=== PATIENT | female | born 1955 | race Caucasian/White ===

== ENCOUNTER 2017-12-04 20:57 | Emergency (ER) | payer MEDICARE, OTHER ==
[~2017-12-04] VITALS: Ht 165.1 cm; Wt 63.5 kg
[2017-12-04] MEDS ORDERED: LORazepam 2MG/ML-1ML VIAL ONE (22:34)
[2017-12-04] MEDS ORDERED: LORazepam 2MG/ML-1ML VIAL IV ONE (22:45)
[2017-12-04 23:12] LABS: Basophils # (auto) 0 uL; Basophils % (auto) 0.5 % (0.0-2.0); Eosinophils # (auto) 0.1 uL; Eosinophils % (auto) 2.2 % (0.0-7.0); Hematocrit 30.9 % (36.0-46.0); Lymphocytes # (auto) 0.3 uL; Lymphocytes % (auto) 10.5 % (10.0-50.0); Mean Corpuscular Hemoglobin 33.8 pg (28.0-32.0); Mean Corpuscular Hgb Conc. 35.6 g/dL (32.0-36.0); Mean Corpuscular Volume 94.9 fL (80.0-100.0); Monocytes # (auto) 0.3 uL; Monocytes % (auto) 11.7 % (0.0-12.0); Neutrophils # (auto) 1.9 uL; Neutrophils % (auto) 75.1 % (37.0-80.0); Nucleated Red Blood Cells % 0.1 %; Red Blood Cells 3.26 10^6/uL (4.0-5.20); Red Cell Distribution Width 14.9 % (11.8-14.3); White Blood Cell 2.5 10^3/uL (4.4-10.8)
[2017-12-04 23:23] LABS: INR 0.97 (0.9-1.15); Partial Thromboplastin Time 26.7 sec (23.78-33.04); Platelet Count (auto) 127 10^3/uL (140-450); Prothrombin Time 10.4 sec (9.27-12.13)
[2017-12-04 23:30] LABS: Alanine Aminotransferase 33 U/L (13-56); Anion Gap 11 (5-15); Aspartate Aminotransferase 24 U/L (15-37); BUN/Creatinine Ratio 10.3; Blood Urea Nitrogen 4 mg/dL (7-18); Calcium 9.2 mg/dL (8.5-10.1); Carbon Dioxide 25 mmol/L (21-32); Chloride 104 mmol/L (98-107); GFR African American 214 mL/min; GFR Non-African American 177 mL/min; Glucose 104 mg/dL (74-106); Potassium 3.3 mmol/L (3.5-5.1); Sodium 140 mmol/L (136-145)
[2017-12-04 23:35] LABS: Alkaline Phosphatase 130 U/L (45-117); Bilirubin, Total 0.9 mg/dL (0.2-1.0); Total Protein 7.3 g/dL (6.4-8.2)
[2017-12-05] LABS: Urine Amorphous Crystal FEW /hpf (None Seen); Urine Bacteria NONE SEEN /hpf (None Seen); Urine Blood Negative /uL (Negative); Urine Mucus FEW (None Seen); Urine Specific Gravity 1.014 (1.001-1.035); Urine WBC 4 /hpf (0 - 5)
[2017-12-05 00:13] LABS: Alcohol, Urine < 3.0 mg/dL (0-5); Amphetamine Screen, Urine POSITIVE (NEGATIVE); Barbiturate Scree,Urine NEGATIVE (NEGATIVE); Benzodiazephine Screen, Urine POSITIVE (NEGATIVE); Cannabinoid Screen, Urine NEGATIVE (NEGATIVE); Cocaine Screen, Urine NEGATIVE (NEGATIVE); Opiate Scree,Urine POSITIVE (NEGATIVE); Phencyclidine Screen, Urine NEGATIVE (NEGATIVE)
[2017-12-05 02:36] VITALS: BP 161/80
== END 2017-12-05 03:17 | disposition home or self-care (01) ==
LOC: ER 20:57
DX: F41.9 Anxiety disorder, unspecified (principal); F19.10 Other psychoactive substance abuse, uncomplicated; Z86.73 Personal history of transient ischemic attack (TIA), and cerebral infarction without residual deficits
CPT/HCPCS: 36415; 70450; 80053; 80307; 80320; 80329; 81001; 83880; 84484; 85025; 85610; 85730; 96374; 99285; J2060

== ENCOUNTER 2017-12-11 00:18 | Inpatient (IN) | payer MEDICAID, MEDICARE ==
[~2017-12-11] VITALS: Ht 165.1 cm; Wt 63.0 kg
[2017-12-11 03:44] LABS: Basophils # (auto) 0 uL; Eosinophils # (auto) 0.1 uL; Eosinophils % (auto) 3.2 % (0.0-7.0); Hemoglobin 11.4 g/dL (12.2-16.2); Lymphocytes # (auto) 0.3 uL; Lymphocytes % (auto) 7.6 % (10.0-50.0); Mean Corpuscular Hemoglobin 33.8 pg (28.0-32.0); Mean Corpuscular Hgb Conc. 35.6 g/dL (32.0-36.0); Mean Corpuscular Volume 94.9 fL (80.0-100.0); Monocytes # (auto) 0.4 uL; Monocytes % (auto) 10.4 % (0.0-12.0); Neutrophils # (auto) 2.6 uL; Neutrophils % (auto) 77.8 % (37.0-80.0); Nucleated Red Blood Cells % 0.1 %; Platelet Count (auto) 132 10^3/uL (140-450); Red Blood Cells 3.37 10^6/uL (4.0-5.20); Red Cell Distribution Width 15.2 % (11.8-14.3); White Blood Cell 3.4 10^3/uL (4.4-10.8)
[2017-12-11 04:01] LABS: Albumin 3.6 g/dL (3.4-5.0); BUN/Creatinine Ratio 14.6; Calcium 8.5 mg/dL (8.5-10.1)
[2017-12-11 04:05] LABS: Bilirubin, Total 0.8 mg/dL (0.2-1.0); Total Protein 6.6 g/dL (6.4-8.2)
[2017-12-11 04:16] LABS: Potassium 2.8 mmol/L (3.5-5.1)
[2017-12-11] MEDS ORDERED: POTASSIUM CHL 20 Meq TABLET PO ONE (04:30)
[2017-12-11] MEDS: POTASSIUM CHL 20MEQ/100ML 100 ML IV SCH ×2 (04:30→06:40)
[2017-12-11 05:13] LABS: Alcohol, Urine < 3.0 mg/dL (0-5); Amphetamine Screen, Urine NEGATIVE (NEGATIVE); Barbiturate Scree,Urine NEGATIVE (NEGATIVE); Benzodiazephine Screen, Urine POSITIVE (NEGATIVE); Cannabinoid Screen, Urine NEGATIVE (NEGATIVE); Cocaine Screen, Urine NEGATIVE (NEGATIVE); Opiate Scree,Urine POSITIVE (NEGATIVE); Phencyclidine Screen, Urine NEGATIVE (NEGATIVE); Urine Amorphous Crystal FEW /hpf (None Seen); Urine Bacteria MANY /hpf (None Seen); Urine Blood Negative /uL (Negative); Urine Mucus MANY (None Seen); Urine Specific Gravity 1.026 (1.001-1.035); Urine WBC 36 /hpf (0 - 5)
[2017-12-11] MEDS ORDERED: LORazepam 2MG/ML-1ML VIAL IV ONE ×2 (05:30→09:15)
[2017-12-11] MEDS ORDERED: cefTRIAXone 1GM/10ml IVPUSH 10 ML IV ONE (07:30)
[2017-12-11] MEDS ORDERED: DOCUSATE SOD 100 MG CAP PO PRN (12:30)
[2017-12-11] MEDS ORDERED: cloNIDine HCL 0.1 MG TAB PO PRN (12:30)
[2017-12-11] MEDS ORDERED: ACETAMINOPHEN 325 MG TAB PO PRN (12:30)
[2017-12-11] MEDS ORDERED: ONDANSETRON HCL 4 MG/2 ML VIAL IV PRN (12:30)
[2017-12-11] MEDS ORDERED: ASPirin-EC 81 mg tab PO ONE (12:30)
[2017-12-11] MEDS ORDERED: MORPHINE SULF INJ 2 MG/ML SYRINGE 1ML IV PRN ×2 (12:30)
[2017-12-11] MEDS ORDERED: NITROGLYCERIN 0.4 MG SL TAB SL PRN (12:30)
[2017-12-11] MEDS ORDERED: VANCOMYCIN PER PHARMACY 0 MG IV SCH (12:30)
[2017-12-11] MEDS: SODIUM CHLORIDE 0.9% 1,000 ML IV SCH ×2 (12:48→19:17)
[2017-12-11] MEDS: HYDROcodone-ACET 5/325MG TAB PO PRN ×2 (12:49→18:37)
[2017-12-11] MEDS: VANCOMYCIN 1GM/250ML 250 ML IV SCH (12:49)
[2017-12-11 19:39] LABS: BUN/Creatinine Ratio 10.3; Calcium 8.7 mg/dL (8.5-10.1); Potassium 4.3 mmol/L (3.5-5.1)
[2017-12-11] MEDS: FAMOTIDINE 20 MG TAB PO SCH (21:57)
[2017-12-11] MEDS: ATORVASTATIN 20 MG TAB PO SCH (21:57)
[2017-12-11] MEDS ORDERED: ALPRAZolam 0.5 MG TAB PO ONE (23:00)
[2017-12-12] MEDS: VANCOMYCIN 1GM/250ML 250 ML IV SCH ×2 (01:10→14:51)
[2017-12-12] MEDS: HYDROcodone-ACET 5/325MG TAB PO PRN ×4 (02:18→21:49)
[2017-12-12] MEDS: cefTRIAXone 1GM/10ml IVPUSH 10 ML IV SCH (09:23)
[2017-12-12] MEDS: FAMOTIDINE 20 MG TAB PO SCH ×2 (11:14→21:44)
[2017-12-12] MEDS: MULTIPLE VITAMIN TAB PO SCH (11:15)
[2017-12-12] MEDS: ALPRAZolam 0.5 MG TAB PO PRN ×2 (11:15→19:46)
[2017-12-12] MEDS: ASPirin-EC 81 mg tab PO SCH (11:15)
[2017-12-12] MEDS: ENOXAPARIN SOD 40 MG/0.4 ML SYRINGE SC SCH (11:15)
[2017-12-12 12:00] VITALS: BP 135/85
[2017-12-12 12:30] VITALS: BP 135/85
[2017-12-12 13:13] LABS: Basophils # (auto) 0 uL; Basophils % (auto) 0.9 % (0.0-2.0); Eosinophils # (auto) 0.1 uL; Eosinophils % (auto) 3.3 % (0.0-7.0); Hematocrit 28.9 % (36.0-46.0); Hemoglobin 10.2 g/dL (12.2-16.2); Lymphocytes # (auto) 0.2 uL; Lymphocytes % (auto) 9.9 % (10.0-50.0); Mean Corpuscular Hemoglobin 33.4 pg (28.0-32.0); Mean Corpuscular Hgb Conc. 35.2 g/dL (32.0-36.0); Monocytes # (auto) 0.2 uL; Monocytes % (auto) 9.4 % (0.0-12.0); Neutrophils # (auto) 1.7 uL; Neutrophils % (auto) 76.5 % (37.0-80.0); Nucleated Red Blood Cells % 0.1 %; Platelet Count (auto) 107 10^3/uL (140-450); Red Blood Cells 3.05 10^6/uL (4.0-5.20); Red Cell Distribution Width 15.5 % (11.8-14.3); White Blood Cell 2.2 10^3/uL (4.4-10.8)
[2017-12-12 13:31] LABS: Albumin 3.6 g/dL (3.4-5.0); Bilirubin, Total 0.6 mg/dL (0.2-1.0); Calcium 8.7 mg/dL (8.5-10.1); Potassium 3.6 mmol/L (3.5-5.1); Total Protein 6.3 g/dL (6.4-8.2)
[2017-12-12 15:00] VITALS: BP 151/77
[2017-12-12] MEDS: ATORVASTATIN 20 MG TAB PO SCH (21:44)
[2017-12-12 22:00] VITALS: BP 138/75
[2017-12-13] MEDS: VANCOMYCIN 1GM/250ML 250 ML IV SCH (02:25)
[2017-12-13] MEDS: SODIUM CHLORIDE 0.9% 1,000 ML IV SCH ×2 (04:52→13:23)
[2017-12-13] MEDS: ALPRAZolam 0.5 MG TAB PO PRN ×2 (04:52→17:13)
[2017-12-13 05:00] VITALS: BP 116/77
[2017-12-13 07:42] LABS: BUN/Creatinine Ratio 16.7; Calcium 8.5 mg/dL (8.5-10.1); Potassium 3.7 mmol/L (3.5-5.1)
[2017-12-13 08:00] VITALS: BP 136/70
[2017-12-13 08:52] VITALS: BP 136/70
[2017-12-13] MEDS: cefTRIAXone 1GM/10ml IVPUSH 10 ML IV SCH (09:50)
[2017-12-13] MEDS: ENOXAPARIN SOD 40 MG/0.4 ML SYRINGE SC SCH ×2 (09:50→09:55)
[2017-12-13] MEDS: MULTIPLE VITAMIN TAB PO SCH (09:51)
[2017-12-13] MEDS: ASPirin-EC 81 mg tab PO SCH (09:51)
[2017-12-13] MEDS: FAMOTIDINE 20 MG TAB PO SCH ×2 (09:51→21:17)
[2017-12-13] MEDS: HYDROcodone-ACET 5/325MG TAB PO PRN (10:47)
[2017-12-13 13:00] VITALS: BP 144/75
[2017-12-13] MEDS ORDERED: SODIUM CHLORIDE 0.9% 1,000 ML IV SCH (14:00)
[2017-12-13] MEDS: IBUPROFEN 400 MG TAB PO PRN ×2 (14:33→22:08)
[2017-12-13 17:02] VITALS: BP 139/92
[2017-12-13] MEDS: AMPICILLIN INJ 500 MG in SODIUM CHL 0.9% 50 ML IV SCH ×2 (17:13→23:51)
[2017-12-13] MEDS ORDERED: VANCOMYCIN 1GM/250ML 250 ML IV SCH (18:00)
[2017-12-13] MEDS: ATORVASTATIN 20 MG TAB PO SCH (21:17)
[2017-12-13] MEDS: LACTULOSE 20Gm/30ML SOLN PO PRN (21:17)
[2017-12-13 22:00] VITALS: BP 138/66
[2017-12-13] MEDS ORDERED: GABAPENTIN 300 MG CAP PO SCH (22:00)
[2017-12-13] MEDS: GABAPENTIN 100 MG CAP PO SCH (22:08)
[2017-12-13 22:47] LABS: Cholesterol 123 mg/dL (< 200); HDL Cholesterol 38 mg/dL (40-59); LDL Cholesterol 76 mg/dL (< 100); Triglycerides 133 mg/dL (< 150)
[2017-12-14] MEDS: ALPRAZolam 0.5 MG TAB PO PRN ×2 (01:48→10:32)
[2017-12-14] MEDS: GABAPENTIN 100 MG CAP PO SCH ×2 (05:38→13:33)
[2017-12-14] MEDS: AMPICILLIN INJ 500 MG in SODIUM CHL 0.9% 50 ML IV SCH ×2 (05:38→13:25)
[2017-12-14 06:17] VITALS: BP 147/90
[2017-12-14 09:22] VITALS: BP 133/67
[2017-12-14] MEDS: FAMOTIDINE 20 MG TAB PO SCH (10:31)
[2017-12-14] MEDS: MULTIPLE VITAMIN TAB PO SCH (10:31)
[2017-12-14] MEDS: ASPirin-EC 81 mg tab PO SCH (10:32)
[2017-12-14] MEDS: ENOXAPARIN SOD 40 MG/0.4 ML SYRINGE SC SCH (10:32)
[2017-12-14] MEDS: LACTULOSE 20Gm/30ML SOLN PO PRN (10:41)
[2017-12-14] MEDS ORDERED: FLEET MINERAL OIL ENEMA 133 ML PR ONE (11:45)
[2017-12-14] MEDS ORDERED: NITR-39 PO (11:45)
[2017-12-14] MEDS ORDERED: GAB100C PO (11:45)
[2017-12-14 13:39] VITALS: BP 137/76
[2017-12-14 15:31] VITALS: BP 137/74
== END 2017-12-14 17:45 | disposition home health service (06) | DRG 871 ==
LOC: EDBD 00:18 → ER 00:18 → TELE 00:19 → MERGE 00:19 → TELE-WESTW 12-12 10:07
PROVIDERS: ADMIT Internal Medicine; ATTEND Internal Medicine
DX: A41.9 Sepsis, unspecified organism (principal); G93.41 Metabolic encephalopathy; N39.0 Urinary tract infection, site not specified; D61.818 Other pancytopenia; I69.354 Hemiplegia and hemiparesis following cerebral infarction affecting left non-dominant side; D69.6 Thrombocytopenia, unspecified; I65.21 Occlusion and stenosis of right carotid artery; E87.6 Hypokalemia; D63.8 Anemia in other chronic diseases classified elsewhere; F41.9 Anxiety disorder, unspecified; G89.0 Central pain syndrome; H53.462 Homonymous bilateral field defects, left side; I10 Essential (primary) hypertension; K59.00 Constipation, unspecified; M06.9 Rheumatoid arthritis, unspecified; M19.90 Unspecified osteoarthritis, unspecified site; M75.52 Bursitis of left shoulder; B95.2 Enterococcus as the cause of diseases classified elsewhere; Z79.82 Long term (current) use of aspirin; Z79.899 Other long term (current) drug therapy; Z80.6 Family history of leukemia; Z82.3 Family history of stroke; Z85.6 Personal history of leukemia; Z85.72 Personal history of non-Hodgkin lymphomas; Z90.710 Acquired absence of both cervix and uterus
CPT/HCPCS: 36415; 51702; 70450; 71046; 73020; 73090; 73590; 74176; 80048; 80053; 80061; 80202; 80307; 81001; 83605; 85025; 87040; 87086; 87088; 87186; 92610; 93005; 93306; 93886; 95819; 96361; 96374; 96375; 97110; 97163; 97530; J3480

== ENCOUNTER 2017-12-17 20:05 | Emergency (ER) | payer MEDICARE, OTHER ==
[~2017-12-17] VITALS: Ht 165.1 cm; Wt 59.0 kg
[~2017-12-17 20:05] MED LIST: GAB100C PO; NITR-39 PO
[2017-12-17 20:30] VITALS: BP 93/69
[2017-12-17 23:15] LABS: Eosinophils # (auto) 0.1 uL; Hemoglobin 11.1 g/dL (12.2-16.2); Lymphocytes # (auto) 0.3 uL; Mean Corpuscular Volume 95.2 fL (80.0-100.0); Neutrophils # (auto) 2.1 uL
[2017-12-17 23:18] LABS: Basophils # (auto) 0 uL; Eosinophils % (auto) 3.4 % (0.0-7.0); Hematocrit 31.6 % (36.0-46.0); Lymphocytes % (auto) 9.4 % (10.0-50.0); Mean Corpuscular Hemoglobin 33.5 pg (28.0-32.0); Mean Corpuscular Hgb Conc. 35.2 g/dL (32.0-36.0); Monocytes # (auto) 0.3 uL; Monocytes % (auto) 11.6 % (0.0-12.0); Neutrophils % (auto) 74.6 % (37.0-80.0); Nucleated Red Blood Cells % 0.1 %; Platelet Count (auto) 139 10^3/uL (140-450); Red Blood Cells 3.32 10^6/uL (4.0-5.20); White Blood Cell 2.9 10^3/uL (4.4-10.8)
[2017-12-17 23:26] LABS: Albumin 3.9 g/dL (3.4-5.0); BUN/Creatinine Ratio 13.6; Calcium 8.6 mg/dL (8.5-10.1)
[2017-12-17 23:29] LABS: Bilirubin, Total 0.7 mg/dL (0.2-1.0); Total Protein 7.1 g/dL (6.4-8.2)
== END 2017-12-18 03:05 | disposition left against medical advice (07) ==
LOC: ER 20:05
DX: K59.00 Constipation, unspecified (principal); R94.31 Abnormal electrocardiogram [ECG] [EKG]; Z53.21 Procedure and treatment not carried out due to patient leaving prior to being seen by health care provider
CPT/HCPCS: 36415; 74018; 80053; 85025; 93005

== ENCOUNTER 2019-01-20 10:39 | Emergency (ER) | payer MEDICARE, OTHER ==
[~2019-01-20] VITALS: Ht 167.6 cm; Wt 49.9 kg
[2019-01-20 13:48] VITALS: BP 167/103
== END 2019-01-20 14:08 | disposition home or self-care (01) ==
LOC: ER 10:43
DX: S46.912A Strain of unspecified muscle, fascia and tendon at shoulder and upper arm level, left arm, initial encounter (principal); K04.90 Unspecified diseases of pulp and periapical tissues; I63.511 Cerebral infarction due to unspecified occlusion or stenosis of right middle cerebral artery; E78.5 Hyperlipidemia, unspecified; W19.XXXA Unspecified fall, initial encounter; Y93.89 Activity, other specified; Y92.89 Other specified places as the place of occurrence of the external cause; Y99.8 Other external cause status
CPT/HCPCS: 70486; 73030

== ENCOUNTER 2019-04-26 10:40 | Emergency (ER) | payer MEDICARE, OTHER ==
[~2019-04-26] VITALS: Ht 165.1 cm; Wt 47.6 kg
[2019-04-26 12:22] LABS: Urine Bacteria NONE SEEN /hpf (None Seen); Urine Blood Negative /uL (Negative); Urine Mucus FEW (None Seen); Urine Specific Gravity 1.008 (1.001-1.035); Urine WBC 1 /hpf (0 - 5)
[2019-04-26] MEDS ORDERED: SODIUM CHLORIDE 0.9% 1,000 ML IV ONE (12:36)
[2019-04-26] MEDS ORDERED: PROMETHAZINE HCL 25 MG/ML 1ML IV PRN (12:45)
[2019-04-26] MEDS ORDERED: LORazepam 0.5 MG TAB PO ONE (12:45)
[2019-04-26] MEDS ORDERED: KETOROLAC TROMETH 30 MG/ML 1ML VIAL IV ONE (12:45)
[2019-04-26 13:20] LABS: Eosinophils # (auto) 0 uL; Eosinophils % (auto) 0.4 % (0.0-7.0); Lymphocytes # (auto) 0.8 uL; Monocytes # (auto) 0.4 uL; Monocytes % (auto) 6.3 % (0.0-12.0); Red Blood Cells 4.34 10^6/uL (4.0-5.20)
[2019-04-26 13:22] LABS: Basophils # (auto) 0.1 uL; Basophils % (auto) 0.9 % (0.0-2.0); Hematocrit 40.4 % (36.0-46.0); Hemoglobin 14.7 g/dL (12.2-16.2); Lymphocytes % (auto) 14.3 % (10.0-50.0); Mean Corpuscular Hemoglobin 33.9 pg (28.0-32.0); Mean Corpuscular Hgb Conc. 36.4 g/dL (32.0-36.0); Neutrophils # (auto) 4.4 uL; Neutrophils % (auto) 78.1 % (37.0-80.0); Nucleated Red Blood Cells % 0.2 %; Platelet Count (auto) 172 10^3/uL (140-450); Red Cell Distribution Width 13.4 % (11.8-14.3); White Blood Cell 5.7 10^3/uL (4.4-10.8)
[2019-04-26 13:28] LABS: Albumin 3.9 g/dL (3.4-5.0); Calcium 9.3 mg/dL (8.5-10.1); Magnesium 2.3 mg/dL (1.6-2.6); Potassium 3.3 mmol/L (3.5-5.1)
[2019-04-26 13:32] LABS: BUN/Creatinine Ratio 8.9; Bilirubin, Total 0.7 mg/dL (0.2-1.0); Total Protein 7.3 g/dL (6.4-8.2)
[2019-04-26] MEDS ORDERED: hydrALAZINE HCL 20 MG/ML VL IV ONE (13:45)
[2019-04-26] MEDS ORDERED: FLEET MINERAL OIL ENEMA 133 ML PR ONE (14:15)
[2019-04-26 14:33] VITALS: BP 157/66
== END 2019-04-26 15:46 | disposition home or self-care (01) ==
LOC: ER 10:40
DX: R33.9 Retention of urine, unspecified (principal); I10 Essential (primary) hypertension; K59.00 Constipation, unspecified; I63.9 Cerebral infarction, unspecified; G81.92 Hemiplegia, unspecified affecting left dominant side; E87.6 Hypokalemia; F17.210 Nicotine dependence, cigarettes, uncomplicated; E78.5 Hyperlipidemia, unspecified; Z90.710 Acquired absence of both cervix and uterus
CPT/HCPCS: 36415; 71045; 74176; 80053; 81001; 83690; 83735; 85025; 93005; 96374; 96375; 99284; J0360; J1885; J2550; J7030